=== PATIENT | female | born 1995 | race Caucasian/White ===

== ENCOUNTER → 2018-07-26 | Emergency (ER) | payer OTHER ==
[~2018-07-26] VITALS: Ht 149.9 cm; Wt 56.7 kg
[~2018-07-26] MED LIST: ZOLOFT50 MG
== END | disposition home or self-care (01) ==
LOC: ER 18:39
DX: S13.4XXA Sprain of ligaments of cervical spine, initial encounter (principal); S40.012A Contusion of left shoulder, initial encounter; V49.9XXA Car occupant (driver) (passenger) injured in unspecified traffic accident, initial encounter; Y93.89 Activity, other specified; Y92.488 Other paved roadways as the place of occurrence of the external cause; Y99.8 Other external cause status

== ENCOUNTER 2019-11-14 09:01 | Emergency (ER) | payer OTHER ==
[~2019-11-14] VITALS: Ht 124.5 cm; Wt 60.3 kg
[2019-11-14] MEDS ORDERED: CIPRO500 MG PO (09:18)
== END 2019-11-14 13:57 | disposition home or self-care (01) ==
LOC: ER 09:01
DX: S40.012A Contusion of left shoulder, initial encounter (principal); S00.83XA Contusion of other part of head, initial encounter; X58.XXXA Exposure to other specified factors, initial encounter; Y93.89 Activity, other specified; Y92.89 Other specified places as the place of occurrence of the external cause; Y99.8 Other external cause status

== ENCOUNTER 2021-04-09 06:26 | Day surgery (SDC) | payer OTHER ==
[~2021-04-09 06:26] MED LIST changes: +ALDACTONE100 MG PO; +CIPRO500 MG PO; +SPRINTEC 28 DA1 EACH PO
[2021-04-09] MEDS ORDERED: ULTRACET PO (17:07)
[2021-04-09] MEDS ORDERED: DUI500 PO (17:07)
== END 2021-04-09 20:30 | disposition home or self-care (01) ==
LOC: CIR.AMB 06:26
PROVIDERS: ATTEND Orthopaedic Surgery
DX: S83.251A Bucket-handle tear of lateral meniscus, current injury, right knee, initial encounter (principal); M67.362 Transient synovitis, left knee; M94.261 Chondromalacia, right knee; Z20.822 Contact with and (suspected) exposure to COVID-19